=== PATIENT | female | born 1985 | race Caucasian/White ===

== ENCOUNTER 2016-10-18 13:09 | Emergency (ER) | payer OTHER ==
[~2016-10-18] VITALS: Ht 165.1 cm; Wt 98.9 kg
[2016-10-18 13:09] VITALS: BP 127/90
[2016-10-18] MEDS ORDERED: PRENTAB31 PO (13:46)
[2016-10-18] MEDS ORDERED: LIDOCAINE 2% MDV 20 ML VIAL SC ONE (14:30)
[2016-10-18] MEDS ORDERED: CEPHALEXIN 500 MG CAP PO ONE (15:00)
[2016-10-18] MEDS ORDERED: ADACEL/BOOSTRIX VACCINE (DIPHTH/PERTUSS/ACELL/TETANUS)0.5ML SYR (90715) IM ONE (15:15)
--- NOTE | 2016-10-18 15:19 | REP ---
LEFT INDEX FINGER SERIES: Two views. HISTORY: Foreign body left index finger. FINDINGS: AP and lateral views of the index finger demonstrate a sewing needle impaled through the distal phalanx of the index finger from dorsal to volar. No other foreign body is seen. IMPRESSION: Sewing needle impaled through the distal phalanx of the index finger. Signed by Gabriele Barnes MD 10/18/2016 03:36 P
--- NOTE | 2016-10-18 15:34 | REP ---
Left index finger series: Two views. History: Retained foreign body. Findings: AP and lateral views of the index finger obtained through overlying dressing. No opaque foreign body is seen. No fracture is visible. Impression: Foreign body is removed. Signed by Gabriele Barnes MD 10/18/2016 03:36 P
[2016-10-18] MEDS ORDERED: KEFL500C7 PO (15:38)
== END 2016-10-18 15:50 | disposition home or self-care (01) ==
LOC: M ED 14:50
DX: O9A.213 Injury, poisoning and certain other consequences of external causes complicating pregnancy, third trimester (principal); S61.241A Puncture wound with foreign body of left index finger without damage to nail, initial encounter; W27.3XXA Contact with needle (sewing), initial encounter; Y92.018 Other place in single-family (private) house as the place of occurrence of the external cause; Y93.D2 Activity, sewing; Y99.8 Other external cause status; Z3A.30 30 weeks gestation of pregnancy